=== PATIENT | female | born 1960 | race Caucasian/White ===

== ENCOUNTER → 2018-09-01 | Outpatient (REF) | payer BC ==
[2018-09-01 18:33] LABS: ALBUMIN 3.7 GM/DL (3.2-5.2); ALT/SGPT 18 U/L (12-78); BILIRUBIN,TOTAL 0.4 MG/DL (0.2-1.0); BLOOD UREA NITROGEN 14 MG/DL (7-18); CALCIUM LEVEL 8.8 MG/DL (8.5-10.1); CARBON DIOXIDE LEVEL 30 MEQ/L (21-32); CHLORIDE LEVEL 105 MEQ/L (98-107); CHOLESTEROL LEVEL 288 MG/DL (<200); CHOLESTEROL RISK RATIO 3.348 (<5); CREATININE FOR GFR 0.81 MG/DL (0.55-1.30); GLOMERULAR FILTRATION RATE > 60.0 (>51); GLUCOSE, FASTING 98 MG/DL (70-100); HDL CHOLESTEROL 86 MG/DL (>40); LDL CHOLESTEROL 153 MG/DL (<100); MAGNESIUM LEVEL 2.2 MG/DL (1.8-2.4); NON-HDL-C 202 MG/DL; PTH INTACT 37.1 PG/ML (18.5-88.0); SODIUM LEVEL 139 MEQ/L (136-145); TOTAL 25(OH) VITAMIN D 17.4 NG/ML (30.0-100.0); TOTAL PROTEIN 7.2 GM/DL (6.4-8.2); TRIGLYCERIDES LEVEL 246 MG/DL (<150)
[2018-09-01 18:48] LABS: BASO # 0.1 10^3/uL (0.0-0.2); BASO % 0.7 % (0.0-1.0); EOS # 0.2 10^3/uL (0.0-0.50); EOS % 3.2 % (0.0-3.0); HEMATOCRIT 42.4 % (36.0-47.0); HEMOGLOBIN 13.7 g/dl (12.0-15.5); LYMPH # 1.8 10^3/uL (1.5-4.5); LYMPH % 24.8 % (24.0-44.0); MEAN CORPUSCULAR HEMOGLOBIN 31.4 pg (27.0-33.0); MEAN CORPUSCULAR HGB CONC 32.3 g/dl (32.0-36.5); MEAN CORPUSCULAR VOLUME 97.2 fl (80.0-96.0); MONO # 0.5 10^3/uL (0.0-0.8); MONO % 6.9 % (0.0-5.0); NEUTROPHILS # 4.6 10^3/uL (1.8-7.7); PLATELET COUNT, AUTOMATED 230 10^3/uL (150-450); RED BLOOD COUNT 4.36 10^6/uL (4.00-5.40); WHITE BLOOD COUNT 7.2 10^3/uL (4.0-10.0)
[2018-09-01 18:59] LABS: HEMOGLOBIN A1c 5.5 %
== END ==
LOC: M SFHCPLAZ 13:40
PROVIDERS: ATTEND Nurse Practitioner Family
DX: Z13.228 Encounter for screening for other metabolic disorders (principal); I10 Essential (primary) hypertension; E78.5 Hyperlipidemia, unspecified; E55.9 Vitamin D deficiency, unspecified

== ENCOUNTER 2019-01-31 20:00 | Emergency (ER) | payer BC ==
[~2019-01-31] VITALS: Ht 162.6 cm; Wt 86.4 kg
[2019-01-31] MEDS ORDERED: PERCOCET 5MG/325MG TAB PO ONE (21:30)
[2019-01-31] MEDS ORDERED: ADACEL/BOOSTRIX VACCINE (DIPHTH/PERTUSS/ACELL/TETANUS)0.5ML SYR (90715) IM ONE (21:45)
[2019-01-31] MEDS ORDERED: NORCO 5/325MG TABLET (BULK FOR ED) PO ONE (22:15)
[2019-01-31 22:19] VITALS: BP 152/96
--- NOTE | 2019-02-01 07:58 | REP ---
Clinical: Trauma. Amputation. Technique: AP, lateral, bilateral oblique views of the left digits. Findings: There is traumatic amputation at the level of the mid distal phalanx fourth digit. Degenerative changes noted. 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 Electronically Signed by Marcus Sampson MD 02/01/2019 07:49 A
== END 2019-01-31 22:22 | disposition home or self-care (01) ==
LOC: M ED 20:00
DX: S68.615A Complete traumatic transphalangeal amputation of left ring finger, initial encounter (principal); X58.XXXA Exposure to other specified factors, initial encounter; Y92.410 Unspecified street and highway as the place of occurrence of the external cause; Y93.K1 Activity, walking an animal; Y99.9 Unspecified external cause status; Z87.891 Personal history of nicotine dependence; Z91.040 Latex allergy status; Z88.5 Allergy status to narcotic agent

== ENCOUNTER → 2019-03-08 | Outpatient (REF) | payer BC, SELFPAY ==
[2019-03-08 20:29] LABS: ALBUMIN 3.7 GM/DL (3.2-5.2); ALT/SGPT 21 U/L (12-78); BILIRUBIN,TOTAL 0.4 MG/DL (0.2-1.0); BLOOD UREA NITROGEN 13 MG/DL (7-18); CALCIUM LEVEL 9.7 MG/DL (8.5-10.1); CARBON DIOXIDE LEVEL 31 MEQ/L (21-32); CHLORIDE LEVEL 102 MEQ/L (98-107); CHOLESTEROL LEVEL 209 MG/DL (<200); CHOLESTEROL RISK RATIO 2.714 (<5); CREATININE FOR GFR 0.71 MG/DL (0.55-1.30); GLOMERULAR FILTRATION RATE > 60.0 (>51); GLUCOSE, FASTING 79 MG/DL (70-100); HDL CHOLESTEROL 77 MG/DL (>40); LDL CHOLESTEROL 97 MG/DL (<100); MAGNESIUM LEVEL 1.9 MG/DL (1.8-2.4); NON-HDL-C 132 MG/DL; POTASSIUM SERUM 4.7 MEQ/L (3.5-5.1); SODIUM LEVEL 139 MEQ/L (136-145); TOTAL PROTEIN 6.7 GM/DL (6.4-8.2); TRIGLYCERIDES LEVEL 176 MG/DL (<150)
[2019-03-08 20:40] LABS: HEMOGLOBIN A1c 5.9 %
== END ==
LOC: M SFHCPLAZ 17:17
PROVIDERS: ATTEND Nurse Practitioner Family
DX: I10 Essential (primary) hypertension (principal); E78.5 Hyperlipidemia, unspecified

== ENCOUNTER → 2019-03-08 | Outpatient (CLI) | payer BC, SELFPAY ==
--- NOTE | 2019-03-08 19:31 | REP ---
RIGHT SHOULDER, THREE VIEWS: Three views of the right shoulder are performed. There is no acute fracture or dislocation. There is mild narrowing and spurring at the acromioclavicular joint. There is an oval calcific density likely in the soft-tissues along the humeral head approximately 1.5 cm in maximum diameter. This may be a tendinous calcification. I see no other significant finding. IMPRESSION: Mild degenerative changes of the acromioclavicular joint. Oval calcific density along the humeral head may represent a tendinous calcification. Electronically Signed by Joon Barrientos MD 03/10/2019 07:55 A
--- NOTE | 2019-03-08 19:36 | REP ---
CERVICAL SPINE SERIES: Seven views of the cervical spine are performed including flexion and extension lateral views. The C7 vertebral body is not seen on the lateral views. No compression fracture is seen of the remaining vertebral bodies. There is moderate spurring of C4 through C6 with mild disc space narrowing and subchondral sclerosis at C4-5 and C5-6. There is diffuse narrowing, sclerosis and spurring at the posterior facet joints. There is mild posterior osteophytic ridging at the C4-5 level. Uncovertebral and facet spurring may cause a mild degree of neural foraminal narrowing bilaterally at C4-5. IMPRESSION: Degenerative changes as above. The study is somewhat limited as C7 vertebral body is not visualized on the lateral views. Electronically Signed by Joon Barrientos MD 03/10/2019 07:56 A
== END ==
LOC: M LRY 17:14
PROVIDERS: ATTEND Nurse Practitioner Family
DX: M54.2 Cervicalgia (principal); M25.511 Pain in right shoulder

== ENCOUNTER → 2019-04-21 | Outpatient (CLI) | payer BC ==
--- NOTE | 2019-04-22 12:47 | REP ---
Clinical: Osteoarthritis. Technique: Internal rotation, external rotation, and Y view of the left shoulder. Findings: Generalized moderate osteopenia is appreciated. Mild cortical irregularity at the acromioclavicular joint is consistent with very subtle osteoarthritic changes. Subacromial space is normal. No acute fracture or dislocation. Impression: Moderate osteopenia and mild osteoarthritic degenerative changes Electronically Signed by Marcus Sampson MD 04/22/2019 12:38 P
== END ==
LOC: M LRY 14:56
PROVIDERS: ATTEND Nurse Practitioner Family
DX: M19.011 Primary osteoarthritis, right shoulder (principal); M85.89 Other specified disorders of bone density and structure, multiple sites

== ENCOUNTER → 2019-04-21 | Outpatient (REF) | payer BC ==
[2019-04-21 20:22] LABS: C REACTIVE PROTEIN QUANTITATIV 0.68 MG/DL (0.00-0.30); RHEUMATOID FACTOR QUANT < 10.0 IU/ML (<15.0)
[2019-04-26 00:06] LABS: ANA (HEP2) Negative (.); CYCLIC CITRULLINATED PEPTIDE 15 units (0-19)
== END ==
LOC: M SFHCPLAZ 15:26
PROVIDERS: ATTEND Nurse Practitioner Family
DX: M25.50 Pain in unspecified joint (principal)

== ENCOUNTER → 2019-05-06 | Outpatient (CLI) | payer BC ==
--- NOTE | 2019-05-06 16:20 | REP ---
MRI cervical spine: 05/06/2019. Indication: Neck pain. Comparison: None. Technique: Multiplanar short and long TR sequences of the cervical spine were obtained without IV Gadolinium. Findings: Cervical vertebral body alignment is anatomic. Disc desiccation and disc space narrowing are present throughout most pronounced at C5/C6. Endplate degenerative signal changes are present again most pronounced at C5/C6. No worrisome marrow signal is detected. They are too small areas of elevated CT signal within the right aspect of the cord at C5/C6 new which may represent minimal focal myelomalacia, however, considerations also included a demyelinating process, ischemia/infarction and additional less likely etiologies. C2/C3: Unremarkable. C3/C4: There is an asymmetric disc and spur complex more apparent on the left with mild narrowing of the spinal canal. There is severe left neural foraminal narrowing. C3/C4: Diffuse disc osteophyte complex is present with flattening of the ventral cord and bilateral severe neural foraminal narrowing. C5/C6: Diffuse disc bulge is present with minimal flattening of the ventral cord. Severe left and moderate to severe right neural foraminal narrowing is noted. C6/C7: Diffuse disc bulge is present with mild flattening of the ventral thecal sac. There is moderate left neural foraminal narrowing. C7/T1: There is a left lateral disc protrusion and left-sided uncovertebral proliferation. There is no significant compression of the cord. Impression: Left lateral C7/T1 disc herniation. Additional multilevel degenerative sequelae as described. Please correlate with radicular level. Electronically Signed by Luiz Avila DO 05/06/2019 04:12 P
== END ==
LOC: M RAD 12:31
PROVIDERS: ATTEND Nurse Practitioner Family
DX: M25.78 Osteophyte, vertebrae (principal); M50.23 Other cervical disc displacement, cervicothoracic region; M50.222 Other cervical disc displacement at C5-C6 level; M50.023 Cervical disc disorder at C6-C7 level with myelopathy; M50.31 Other cervical disc degeneration, high cervical region; M50.322 Other cervical disc degeneration at C5-C6 level; M50.323 Other cervical disc degeneration at C6-C7 level

== ENCOUNTER → 2019-05-10 | Outpatient (REF) | payer BC ==
[2019-05-13 14:27] LABS: HPV HYBRID CAPTURE II Negative (Negative)
== END ==
LOC: M SFHCPLAZ 16:20
PROVIDERS: ATTEND Nurse Practitioner Family
DX: Z12.4 Encounter for screening for malignant neoplasm of cervix (principal)
CPT/HCPCS: 87624; G0123

== ENCOUNTER → 2019-07-07 | Outpatient (CLI) | payer BC ==
--- NOTE | 2019-07-08 10:21 | REPMRS ---
Patient History The patient states she had a clinical breast exam in 06/16.Patient is postmenopausal. Family history of breast cancer at age 70 in maternal aunt. Digital Woman Screen Mammo: July 07, 2019 - Exam #: [id number] Bilateral CC and MLO view(s) were taken. Technologist: Rocío Stevens, Technologist No prior studies available for comparison. FINDINGS: There are scattered fibroglandular densities. No comparison study could be located. There are two well-circumscribed 5 mm nodules adjacent one another in the lateral left mid breast which merit further evaluation. There is no other evidence of dominant mass, architectural distortion, or grouped microcalcification typical of malignancy. 3-D tomosynthesis shows no additional findings. Assessment: BI-RADS/ACR category 0 mammogram, Incomplete: Need additional imaging evaluation and/or prior mammograms for comparison. Recommendation Ultrasound and special view mammogram of the left breast. This patient's Lifetime Breast Cancer RIsk is estimated at 9.9 %. This mammogram was interpreted with the aid of an FDA-approved computer-aided dectection system. Electronically Signed By: Pj Solitario MD 07/08/19 0967
== END ==
LOC: M WHC 14:17
PROVIDERS: ATTEND Nurse Practitioner Family
DX: Z12.31 Encounter for screening mammogram for malignant neoplasm of breast (principal); R92.8 Other abnormal and inconclusive findings on diagnostic imaging of breast; N63.25 Unspecified lump in the left breast, overlapping quadrants; Z78.0 Asymptomatic menopausal state; Z80.3 Family history of malignant neoplasm of breast

== ENCOUNTER → 2019-07-18 | Outpatient (CLI) | payer BC ==
--- NOTE | 2019-07-18 17:49 | REP ---
Digital diagnostic unilateral left breast mammography with CAD and focused left breast sonography: History: Screening mammogram from the July 07, 2019 is BIRADS category zero because of two well circumscribed 5 mm nodules adjacent one another in the medial left breast. Diagnostic imaging was recommended. I note that the original report describes these as lateral but this is incorrect. They are and were medial. Mammographic findings: Magnified focal spot compression CC, mediolateral, and MLO views confirm the presence of these nodular opacities in the superior and medial quadrant of the left breast. They are well circumscribed. There is a benign calcification nearby. No other mammographic findings. Sonographic findings: The left breast is scanned from 9 o'clock to 12 o'clock through the superior and medial quadrant. At approximately 12 o'clock position with the patient supine, there is an oval-shaped cystic area which is felt to correspond morphologically with the mammographic opacity. This measures 7 x 5 x 2 mm and is anechoic. It has enhanced through transmission. No other suspicious sonographic finding is seen. There is an echogenic focus with shadowing consistent with the calcification seen at the 11 o'clock position. Impression: BIRADS category II benign findings. Cyst is seen in the superomedial quadrant of the left breast. Repeat screening mammography recommended in 1 year. BIRADS 2: BI-RADS/ACR category 2 mammogram. Benign Findings. This mammogram was interpreted with the aid of an FDA-approved computer-aided detection system. The patient states she had a clinical breast exam in May 2019 The patient letter being requested is m#[id number] Electronically Signed by Alexis Solitario MD 07/18/2019 07:52 P
== END ==
LOC: M RAD 13:55
PROVIDERS: ATTEND Nurse Practitioner Family
DX: N60.02 Solitary cyst of left breast (principal)

== ENCOUNTER → 2019-08-11 | Outpatient (CLI) | payer BC ==
--- NOTE | 2019-08-11 12:05 | REPVR ---
PROCEDURE INFORMATION: Exam: MR Lumbar Spine Without Contrast. Exam date and time: 08/11/2019 11:40 AM Age: 58 years old Clinical indication: Weakness and other: Difficulty walking; Additional info: Cervical myelopathy TECHNIQUE: Imaging protocol: Multiplanar magnetic resonance images of the lumbar spine without intravenous contrast. COMPARISON: No relevant prior studies available. FINDINGS: Vertebrae: There is no fracture or listhesis. There is no fracture or listhesis. Normal vertebral body alignment and heights are preserved. Spinal cord: The conus medullaris terminates at L1. L1-L2: No significant disc disease. No significant spinal canal stenosis. No neural foraminal stenosis. L2-L3: There is shallow disc bulging. There is mild facet hypertrophy. The spinal canal and neural foramina are patent. L3-L4: There is shallow disc bulging. There is mild facet hypertrophy. There is mild left neural foraminal narrowing. L4-L5: There is diffuse disc bulging with a superimposed right foraminal protrusion. There is [id number]-[id number] facet and ligamentous hypertrophy. There is mild bilateral lateral recess stenosis. There is mild canal stenosis, with a residual diameter of 10 mm. There is moderate right neural foraminal narrowing. Disc material comes in close contact with the exiting right L4 nerve root. L5-S1: There is diffuse disc bulging. There is mild facet hypertrophy. The spinal canal and neural foramina are patent. Soft tissues: Unremarkable. IMPRESSION: Degenerative disc disease and spondylosis. At L4/5, right foraminal protrusion comes into close contact with the exiting right L4 nerve root. Electronically signed by: Adele Arenas On 08/11/2019 12:05:37 PM
--- NOTE | 2019-08-11 12:08 | REPVR ---
PROCEDURE INFORMATION: Exam: MR Thoracic Spine Without Contrast Exam date and time: 08/11/2019 11:40 AM Age: 58 years old Clinical indication: Weakness; Additional info: Cervical myelopathy TECHNIQUE: Imaging protocol: Multiplanar magnetic resonance images of the thoracic spine without contrast. COMPARISON: No relevant prior studies available. FINDINGS: Vertebrae: There is no fracture or listhesis. Normal vertebral body alignment and heights are preserved. There is a Schmorl's node along the superior endplate of T10. Spinal cord: The thoracic cord is of normal contour and signal properties. Discs/Spinal canal/Neural foramina: There are shallow multilevel disc bulges. There is facet hypertrophy, most pronounced at T2/3 and T3/4. There is no associated canal or neural foraminal compromise. Soft tissues: Unremarkable. IMPRESSION: Mild degenerative disc disease without canal or foraminal compromise. Electronically signed by: Adele Arenas On 08/11/2019 12:08:27 PM
== END ==
LOC: M RAD 10:18
PROVIDERS: ATTEND Neurological Surgery
DX: G95.9 Disease of spinal cord, unspecified (principal)

== ENCOUNTER → 2019-08-18 | Outpatient (REF) | payer BC | LOC: M LAB REF 11:20 | PROVIDERS: ATTEND Dermatology | DX: D22.39 Melanocytic nevi of other parts of face (principal) ==

== ENCOUNTER → 2019-09-02 | Outpatient (CLI) | payer BC ==
--- NOTE | 2019-09-02 13:36 | REPPI ---
CHEST, TWO VIEWS: No comparison. Two views of the chest are performed. I see no acute infiltrate. Heart is normal in size. There is mild calcification of the thoracic aorta. Mediastinal silhouette is otherwise unremarkable. There is mild curvature of the thoracic spine toward the right with mild degenerative changes. IMPRESSION: No acute pulmonary disease. Electronically Signed by Joon Barrientos MD 09/06/2019 03:52 P
[2019-09-02 16:06] LABS: HEMOGLOBIN A1c 6.1 %
[2019-09-02 16:17] LABS: FREE T4 1.15 NG/DL (0.76-1.46); NT-PRO BNP 79 PG/ML (<125); TROPONIN I < 0.02 NG/ML (< 0.10)
== END ==
LOC: M PLAIMG 12:36
PROVIDERS: ATTEND Family Medicine
DX: R07.89 Other chest pain (principal)

== ENCOUNTER → 2019-09-08 | Outpatient (CLI) | payer BC ==
--- NOTE | 2019-09-08 20:42 | ECHO ---
DATE OF PROCEDURE: 09/08/2019 AGE: 59 GENDER: Female HEIGHT: 64 inches WEIGHT: 212 pounds BODY SURFACE AREA: 2.01 m2 PATIENT LOCATION: Outpatient REFERRING PHYSICIAN: Yohannes Calvert MD INDICATION: Chest pain. 2-D MEASUREMENTS: RV: 3.6 cm LV: 4.2 cm Septum: 1.2 cm Posterior wall: 1.2 cm Aortic root: 3.2 cm LA: 4.0 cm LVEF: 65% DOPPLER MEASUREMENTS: AV: 1.21 m/s LVOT: 0.84 m/s LVOT diameter: 1.8 cm MV-E: 67, A: 88, EA ratio: 0.8 E prime medial: 6 A prime medial: 9.5 E prime lateral: 7.7 Average E/E prime ratio: 9.8 / PCWP: 14 mmHg PV: 0.75 m/s Pulmonary artery acceleration time: 100 ms RVSP: 37 mmHg IVC: 1.5 cm COMMENTS Sinus tachycardia without intraventricular conduction disturbance. Technically challenging study in light of the patient's body habitus but diagnostically useful information was still obtained. M-mode and two-dimensional echocardiography was performed with pulsed, continuous wave, color flow and tissue Doppler studies. Borderline concentric left ventricle hypertrophy with normal wall motion. Borderline left atrial enlargement with grade 1 LV diastolic dysfunction and estimated mean left atrial pressure upper limits of normal to slightly increased. Normal right heart chamber sizes and motion with Doppler evidence of mild pulmonary hypertension. Normal IVC size and adequate collapse against an elevated central venous pressure at this time. Normal-appearing aortic valve and aortic valve function. Normal aortic dimensions. Normal-appearing mitral valvular apparatus with very mild insufficiency. Normal appearing tricuspid valve with mild insufficiency. No apparent intracardiac mass or pericardial effusion.
== END ==
LOC: M CARPUL 11:43
PROVIDERS: ATTEND Family Medicine
DX: R00.0 Tachycardia, unspecified (principal); I27.20 Pulmonary hypertension, unspecified

== ENCOUNTER → 2019-11-17 | Outpatient (CLI) | payer BC ==
--- NOTE | 2019-11-30 10:20 | SLEEPCENT ---
DATE OF STUDY: 11/17/2019 ORDERED BY: Luciana Kim Nocturnal polysomnography was performed for evaluation of sleep physiology in this patient with a history of excessive somnolence and nonrestorative sleep. 7 hours and 41 minutes of data were reviewed. There were 233 minutes of sleep identified. Sleep latency was prolonged at 111.5 minutes. Rapid eye movement (REM) sleep was not achieved. Sleep architecture showed severe fragmentation and poor progression. Overall sleep efficiency was 51.8%. The electrocardiogram showed a sinus rhythm with some artifactual changes. Average heart rate was 100 beats per minute. Electroencephalogram (EEG) showed coarsening of background, otherwise normal wave forms for wake and sleep. There were 234 respiratory events identified of 10 seconds in duration or greater for an apnea-hypopnea index of 60.3. The events were obstructive, not exclusive to sleep stage and more frequent, but not exclusive to the supine posture. Arousals from respiratory events occurred 20.3 times per hour and oxygen desaturations were seen in the mid 80s. There was also some activity noted in the limb leads, 2 trains of 39 events. Limb movement arousal index was 6.7. IMPRESSION: Severe obstructive sleep apnea syndrome (G47.33), apnea-hypopnea 60.3. RECOMMENDATION: The patient should be encouraged to return to the sleep disorder [facility] for pressure therapy. In the interim, alcohol and sedative avoidance should be practiced and caution exercised during the operation of motor vehicles.
== END ==
LOC: M SLEEP 20:00
PROVIDERS: ATTEND Nurse Practitioner Family
DX: G47.33 Obstructive sleep apnea (adult) (pediatric) (principal)

== ENCOUNTER → 2020-01-13 | Outpatient (CLI) | payer BC ==
--- NOTE | 2020-03-09 14:46 | SLEEPCENT ---
DATE: 01/13/2020 ORDERED BY: JOHN Martinez Nocturnal polysomnography was performed for the titration of pressure therapy in this patient with obstructive sleep apnea syndrome. For testing, the patient was fit with a [employer] full-face mask of small size, 4 cm of water pressure applied to the circuit, and the lights were extinguished. There was 7 hours and 23 minutes of data reviewed. There was 141 minutes of sleep identified. Sleep latency was prolonged at 114 minutes. REM latency was not achieved. Overall sleep architecture showed poor progression. There was no REM cycle. Wake was appreciated resulting in a poor sleep efficiency 32.5%. The electrocardiogram showed a sinus rhythm with an average heart rate of 92 beats per minute. EEG showed coarsening in the background. No focal events were identified. There were normal waveforms for wake and sleep. Persistent respiratory patterning prompted an increase in CPAP pressure. Best sleep on review of the record was seen at a CPAP pressure of +10. IMPRESSION: Obstructive sleep apnea syndrome (G47.33). RECOMMENDATIONS: Initiation of CPAP pressure at 10 cm would seem prudent based on the results of this study. However, given the poor quality of the patients sleep, if symptoms are not resolving a referral back to the [facility] for a full night re-titration once the patient is accommodated to the device may be helpful. NIMCO
== END ==
LOC: M SLEEP 20:00
PROVIDERS: ATTEND Nurse Practitioner Family
DX: G47.33 Obstructive sleep apnea (adult) (pediatric) (principal)

== ENCOUNTER → 2020-06-18 | Outpatient (REF) | payer OTHER ==
[2020-06-18 17:53] LABS: ALBUMIN 3.6 GM/DL (3.2-5.2); ALT/SGPT 21 U/L (12-78); BILIRUBIN,TOTAL 0.3 MG/DL (0.2-1.0); BLOOD UREA NITROGEN 13 MG/DL (7-18); CALCIUM LEVEL 9.1 MG/DL (8.5-10.1); CARBON DIOXIDE LEVEL 29 MEQ/L (21-32); CHLORIDE LEVEL 104 MEQ/L (98-107); CHOLESTEROL LEVEL 280 MG/DL (<200); CHOLESTEROL RISK RATIO 3.783 (<5); CREATININE FOR GFR 0.83 MG/DL (0.55-1.30); FREE T4 1.06 NG/DL (0.76-1.46); GLOMERULAR FILTRATION RATE > 60.0 (>51); GLUCOSE, FASTING 93 MG/DL (70-100); HDL CHOLESTEROL 74 MG/DL (>40); LDL CHOLESTEROL 179 MG/DL (<100); NON-HDL-C 206 MG/DL; POTASSIUM SERUM 4.8 MEQ/L (3.5-5.1); SODIUM LEVEL 140 MEQ/L (136-145); TRIGLYCERIDES LEVEL 136 MG/DL (<150)
[2020-06-18 17:55] LABS: TOTAL 25(OH) VITAMIN D 37.6 NG/ML (30.0-100.0)
[2020-06-18 17:56] LABS: HEMOGLOBIN A1c 5.8 %
== END ==
LOC: M SFHCPLAZ 15:47
PROVIDERS: ATTEND Nurse Practitioner Family
DX: I10 Essential (primary) hypertension (principal); E78.5 Hyperlipidemia, unspecified; R73.01 Impaired fasting glucose; E55.9 Vitamin D deficiency, unspecified

== ENCOUNTER → 2020-08-08 | Outpatient (CLI) | payer SELFPAY | LOC: M LABSMTC 11:35 | PROVIDERS: ATTEND Pediatrics | DX: Z20.822 Contact with and (suspected) exposure to COVID-19 (principal) ==

== ENCOUNTER → 2020-08-20 | Outpatient (CLI) | payer OTHER ==
--- NOTE | 2020-08-20 16:32 | REP ---
INDICATION: LUNG CANCER SCREENING. COMPARISON: None. TECHNIQUE: Standard CT low-dose lung screening protocol with thin section images and only lung windows presented. FINDINGS: Lungs are hyperinflated. There is no pleural effusion, pleural thickening or calcified plaques. I see no pulmonary nodule, acute infiltrate, parenchymal masses nor any significant fibrosis. Some emphysematous changes in the mid and upper lung zones present. No gross cardiomegaly. IMPRESSION: Lung RADS category 1. Negative exam. No suspicious finding. Patients with this category was emanation have less than 1% chance of malignancy at the time of the examination. Annual low-dose lung screening CT recommended for patients at high risk lung malignancy. <Electronically signed by Barney Otto > 08/20/20 3232
== END ==
LOC: M RAD 13:11
PROVIDERS: ATTEND Nurse Practitioner Family
DX: Z12.2 Encounter for screening for malignant neoplasm of respiratory organs (principal)

== ENCOUNTER → 2020-11-06 | Outpatient (CLI) | payer OTHER ==
--- NOTE | 2020-11-07 07:16 | REPPI ---
INDICATION: M54.5 BACK PAIN LUMBOSACRAL COMPARISON: None. TECHNIQUE: AP, lateral, bilateral oblique, and coned-down views of the lumbar spine. FINDINGS: Alignment and lordosis maintained. Vertebral bodies are intact. No acute fracture/compression injury or subluxation. No obvious spondylolysis or spondylolisthesis.. Moderate multilevel degenerative changes include endplate sclerosis, osteophytosis, and facet hypertrophy along with mild disc space narrowing primarily involving L5-S1 and L2-3. IMPRESSION: Moderate multilevel degenerative spondylosis. <Electronically signed by Marcus Sampson > 11/07/20 0733
== END ==
LOC: M PLAIMG 14:54
PROVIDERS: ATTEND Nurse Practitioner Family
DX: M47.816 Spondylosis without myelopathy or radiculopathy, lumbar region (principal); M54.5 Low back pain

== ENCOUNTER → 2020-11-21 | Outpatient (CLI) | payer OTHER ==
[~2020-11-21] MED LIST: E-Z-GAS II EFFERVESCENT PACKET (SODIUM BICARB./CITRIC ACID/SIMETHICONE) As Ordered ONE; E-Z-HD 98% w/w 340GM SUSP BTL As Ordered ONE; E-Z-PAQUE 96% w/w SUSP 176GM BTL As Ordered ONE
--- NOTE | 2020-11-21 09:16 | REP ---
INDICATION: THYROID NODULE, DIFFICULTY SWALLOWING /XRAY AFTER COMPARISON: None. TECHNIQUE: Barrientos scale and color evaluation of the thyroid gland using the linear high frequency transducer. FINDINGS: Right thyroid lobe measures 3.6 x 1.6 x 1.4 cm and includes 8 x 7 x 5 mm upper pole hypoechoic nodule, 5 x 5 x 5 mm mixed cystic nodule with punctate calcification, and 11 x 9 x 10 mm hypoechoic lower pole nodule. Isthmus measures 4 mm in width with a 14 x 9 x 6 mm hypoechoic nodule along the right-side. Left lobe measures 3.2 x 1.2 x 1.5 cm without cyst or nodule. Color evaluation demonstrates asymmetric hypervascularity to the right lobe which is nonspecific. IMPRESSION: Nodules as described above are at Ti-RAD category TR 4 and based on size criteria warrant annual follow-up. <Electronically signed by Marcus Sampson > 11/21/20 0913
--- NOTE | 2020-11-21 17:35 | REP ---
INDICATION: THYROID NODULE, DIFFICULTY SWALLOWING /US FIRST. COMPARISON: None. TECHNIQUE: The procedure was performed under the direct supervision of Dr. Solitario. The images were reviewed with Dr. Solitario. Liquid barium and gas producing crystals were given in the erect position as well as liquid barium in the prone oblique position in order to perform a double contrast upper GI examination. Additionally liquid barium was given at the end of the examination in order to perform a small bowel follow through. A combination od fluoroscopy, spot films and last image hold technology was utilized, 2.8 minutes of fluoro time was utilized for this procedure. FINDINGS: The bottle house quality control technician film shows no organomegaly or pathological masses. The intestinal gas pattern is non-specific. The oral and pharyngeal stages of deglutition are unremarkable. Esophageal transport is prompt and efficient and there is no esophagitis, stricture, mucosal ring or hiatal hernia. There is gastroesophageal reflux demonstrated to the level of the thoracic inlet. The stomach weston are normally outlined. The rugal folds are smooth and regular. There is no gastritis neoplasm or ulcer disease. The duodenal weston are normally outlined . The mucosal folds are smooth and regular. There is no duodenitis pancreatitis peptic ulcer disease or neoplasm. The visualized portion of the proximal small bowel appears normal in course and caliber. The barium column was followed through the small bowel to the level of the terminal ileum. Small bowel transit time is rapid as there is contrast seen in the cecum at the and of the upper GI examination. During fluoroscopy gentle palpation shows all loops are freely movable and pliable. There are no fixed or angulated loops. The small bowel mucosal pattern is normal in course and caliber. There is no transition to suggest a partial small-bowel obstruction. Spot filming of the terminal ileum shows it to be unremarkable. IMPRESSION: There is gastroesophageal reflux demonstrated to the level of the thoracic inlet. Small bowel transit time is rapid as there is contrast seen and the cecum at the and of the upper GI examination. Otherwise, unremarkable double contrast upper GI and small bowel follow through examination. <Electronically signed by Raphael Jensen > 11/21/20 1722 <Electronically signed by Pj Solitario > 11/21/20 1737
== END ==
LOC: M RAD 08:21
PROVIDERS: ATTEND Nurse Practitioner Family
DX: K21.9 Gastro-esophageal reflux disease without esophagitis (principal); E04.1 Nontoxic single thyroid nodule; R13.10 Dysphagia, unspecified

== ENCOUNTER → 2020-12-25 | Outpatient (CLI) | payer OTHER ==
[2020-12-25 17:16] LABS: BASO % 0.4 % (0.0-1.0); EOS # 0.1 10^3/uL (0.0-0.5); EOS % 1.4 % (0.0-3.0); HEMATOCRIT 41.2 % (36.0-47.0); HEMOGLOBIN 13.2 g/dl (12.0-15.5); LYMPH # 1.5 10^3/uL (1.5-5.0); LYMPH % 16.4 % (24.0-44.0); MEAN CORPUSCULAR HEMOGLOBIN 31.4 pg (27.0-33.0); MEAN CORPUSCULAR VOLUME 97.9 fl (80.0-96.0); MONO # 0.6 10^3/uL (0.0-0.8); MONO % 6.8 % (2.0-8.0); NEUTROPHILS % 74.5 % (36.0-66.0); PLATELET COUNT, AUTOMATED 245 10^3/uL (150-450); RED BLOOD COUNT 4.21 10^6/uL (4.00-5.40); WHITE BLOOD COUNT 9.4 10^3/uL (4.0-10.0)
[2020-12-25 17:40] LABS: HEMOGLOBIN A1c 5.5 %
[2020-12-25 17:43] LABS: ALBUMIN 3.4 GM/DL (3.2-5.2); ALT/SGPT 21 U/L (12-78); BILIRUBIN,TOTAL 0.4 MG/DL (0.2-1.0); BLOOD UREA NITROGEN 10 MG/DL (7-18); CARBON DIOXIDE LEVEL 27 MEQ/L (21-32); CHLORIDE LEVEL 107 MEQ/L (98-107); CHOLESTEROL LEVEL 181 MG/DL (<200); CHOLESTEROL RISK RATIO 2.479 (<5); GLOMERULAR FILTRATION RATE > 60.0 (>51); GLUCOSE, FASTING 113 MG/DL (70-100); HDL CHOLESTEROL 73 MG/DL (>40); LDL CHOLESTEROL 77 MG/DL (<100); NON-HDL-C 108 MG/DL; POTASSIUM SERUM 3.9 MEQ/L (3.5-5.1); SODIUM LEVEL 139 MEQ/L (136-145); TOTAL PROTEIN 6.4 GM/DL (6.4-8.2); TRIGLYCERIDES LEVEL 157 MG/DL (<150)
== END ==
LOC: M PLALAB 15:35
PROVIDERS: ATTEND Nurse Practitioner Family
DX: I10 Essential (primary) hypertension (principal); E78.5 Hyperlipidemia, unspecified; R73.01 Impaired fasting glucose

== ENCOUNTER → 2020-12-26 | Outpatient (CLI) | payer OTHER ==
--- NOTE | 2020-12-26 15:05 | PFTRPT ---
Height: 64.00 Inches Weight: 192.00 Lbs BSA: 1.92 Diagnosis: J44.9 DATE: 12/26/2020 ORDERING PHYSICIAN: OSBALDO SAVAGE NP Pre and post bronchodilator studies have excellent technical quality. Forced vital capacity is reduced. FEV1 out of proportion. Obstructive index is therefore reduced. Expiratory limit of the flow-volume loop with significant flow rate limitation. Favorable bronchodilator response is identified. Total lung capacity is elevated. Residual volume is consistent with significant air trapping. Diffusing capacity although reduced is appropriate for alveolar volume. No hemoglobin available for correction. Airway resistance elevated with a concomitant decrease in airway conductance. IMPRESSION: At least moderate obstructive ventilatory impairment with underlying air trapping. Suspected emphysema. Favorable bronchodilator response. Please correlate clinically. MTDD
== END ==
LOC: M CARPUL 14:28
PROVIDERS: ATTEND Nurse Practitioner Family
DX: J44.9 Chronic obstructive pulmonary disease, unspecified (principal)

== ENCOUNTER → 2021-08-30 | Outpatient (CLI) | payer OTHER ==
[2021-08-30 15:38] LABS: BASO # 0.1 10^3/uL (0.0-0.2); BASO % 0.9 % (0.0-1.0); EOS # 0.2 10^3/uL (0.0-0.5); EOS % 2.8 % (0.0-3.0); HEMATOCRIT 38.6 % (36.0-47.0); HEMOGLOBIN 12.3 g/dl (12.0-15.5); LYMPH # 2.3 10^3/uL (1.5-5.0); LYMPH % 33.8 % (24.0-44.0); MEAN CORPUSCULAR HGB CONC 31.9 g/dl (32.0-36.5); MEAN CORPUSCULAR VOLUME 94.1 fl (80.0-96.0); MONO # 0.5 10^3/uL (0.0-0.8); MONO % 6.7 % (2.0-8.0); NEUTROPHILS # 3.8 10^3/uL (1.5-8.5); NEUTROPHILS % 55.5 % (36.0-66.0); PLATELET COUNT, AUTOMATED 311 10^3/uL (150-450); WHITE BLOOD COUNT 6.8 10^3/uL (4.0-10.0)
[2021-08-30 16:07] LABS: ALBUMIN 3.4 GM/DL (3.2-5.2); ALT/SGPT 31 U/L (12-78); BILIRUBIN,TOTAL 0.2 MG/DL (0.2-1.0); BLOOD UREA NITROGEN 9 MG/DL (7-18); CALCIUM LEVEL 9.2 MG/DL (8.5-10.1); CARBON DIOXIDE LEVEL 32 MEQ/L (21-32); CHLORIDE LEVEL 106 MEQ/L (98-107); CHOLESTEROL LEVEL 211 MG/DL (<200); CHOLESTEROL RISK RATIO 3.014 (<5); CREATININE FOR GFR 0.69 MG/DL (0.55-1.30); GLOMERULAR FILTRATION RATE > 60.0 (>51); GLUCOSE, FASTING 107 MG/DL (70-100); HDL CHOLESTEROL 70 MG/DL (>40); LDL CHOLESTEROL 105 MG/DL (<100); NON-HDL-C 141 MG/DL; POTASSIUM SERUM 4.8 MEQ/L (3.5-5.1); SODIUM LEVEL 141 MEQ/L (136-145); TOTAL PROTEIN 6.8 GM/DL (6.4-8.2); TRIGLYCERIDES LEVEL 179 MG/DL (<150)
[2021-08-30 16:14] LABS: TOTAL 25(OH) VITAMIN D 20.6 NG/ML (30.0-100.0)
[2021-08-30 17:18] LABS: HEMOGLOBIN A1c 5.7 %
== END ==
LOC: M PLALAB 12:43
PROVIDERS: ATTEND Nurse Practitioner Family
DX: I10 Essential (primary) hypertension (principal); E78.5 Hyperlipidemia, unspecified; R73.01 Impaired fasting glucose

== ENCOUNTER → 2021-09-11 | Outpatient (CLI) | payer OTHER | LOC: M RAD 12:22 | PROVIDERS: ATTEND Nurse Practitioner Family | DX: Z12.2 Encounter for screening for malignant neoplasm of respiratory organs (principal); E04.1 Nontoxic single thyroid nodule ==